=== PATIENT | female | born 1960 | race Caucasian/White ===

== ENCOUNTER 2016-07-20 12:23 | Emergency (ER) | payer OTHER ==
[2016-07-20 13:07] VITALS: BP 159/88
--- NOTE | 2016-07-20 14:08 | ED GENERAL ADULT ---
History of Present Illness General Chief Complaint: Upper Respiratory Sx/Fever Stated Complaint: URI X 2WKS Source: patient, family Exam Limitations: no limitations Vital Signs & Intake/Output Vital Signs & Intake/Output Vital Signs Date Time Temp Pulse Resp B/P Pulse O2 O2 Flow FiO2 Ox Delivery Rate 07/20 1505 98 07/20 1307 97.1 86 18 159/88 98 Room Air Allergies Coded Allergies: No Known Allergies (07/20/16) Reconcile Medications Acetaminophen 500 MG TABLET 4 TAB PO DAILY PRN PAIN (Reported) Citalopram Hydrobromide (Celexa) (Unknown Strength) TABLET (Unknown Dose) PO DAILY MENTAL HEALTH (Reported) Montelukast Sodium (Singulair) 10 MG TABLET 1 TAB PO DAILY SINUSES (Reported) Multivitamin (Multi-Day Vitamins) 1 EACH TABLET 1 TAB PO DAILY SUPPLEMENT ( Reported) Prednisone 10 MG TABLET 1 TAB PO BID bronchitis Sitagliptin Phosphate (Januvia) (Unknown Strength) TABLET (Unknown Dose) PO DAILY DM (Reported) Tamoxifen Citrate 20 MG TABLET 1 TAB PO DAILY BREAST CANCER (Reported) Tramadol HCl 50 MG TABLET 1-2 TAB PO Q6P PRN pain Triage Note: PT STATES SHE IS FROM [place] AND IS [facility]ITING [facility]. PT STATES SHE WAS RECENTLY TREATED AT HOME FOR BRONCHITIS WITH ABX. PT STATES SHE STARTED TO FEEL BETTER BUT NOW LATELY HAS BACK AND NECK PAIN. PT ALSO STATES SHE FEELS VERY TIRED. PT DENIES ANY RECENT FEVERS. Triage Nurses Notes Reviewed? yes Onset: Abrupt Duration: week(s):, constant, continues in ED Timing: recent history No Modifying Factors: none HPI: 55-year-old female comes into emergency room for further evaluation of general pain in her shoulders back and upper chest. Patient reports that she was sick with bronchitis for a few weeks. Patient was coughing a lot. Patient reports that over the past few days she woke up and was experiencing just general pain in her upper body. Denies any shortness of breath. Pain is worse with movement and deep breath. Denies any fever or chills. Denies any persistent cough at this time. Denies any runny nose congestion. Denies any nausea vomiting. Patient reports that nothing is seen the make the symptoms better. (ADRIAN BROWN,ALANNAH) Past History Travel History Traveled to [place] past 21 day No Medical History Any Pertinent Medical History? see below for history Respiratory: bronchitis Endocrine: diabetes Cancer(s): breast cancer Surgical History Surgical History: non-contributory Psychosocial History What is your primary language Frisian Tobacco Use: Quit >30 days ago Family History Hx Contributory? No (ALANNAH WARD) Review of Systems Review of Systems Constitutional: Reports: no symptoms. EENTM: Reports: no symptoms. Respiratory: Reports: see HPI. Cardiovascular: Reports: see HPI. GI: Reports: no symptoms. Genitourinary: Reports: no symptoms. Musculoskeletal: Reports: see HPI. Skin: Reports: no symptoms. Neurological/Psychological: Reports: no symptoms. Hematologic/Endocrine: Reports: no symptoms. Immunologic/Allergic: Reports: no symptoms. All Other Systems: Reviewed and Negative (ALANNAH WARD) Physical Exam Physical Exam General Appearance: well developed/nourished, no apparent distress, alert, awake Head: atraumatic, normal appearance Eyes: Bilateral: normal appearance, PERRL, EOMI. Ears, Nose, Throat: normal pharynx, normal ENT inspection Neck: normal inspection, full range of motion Respiratory: normal breath sounds, no respiratory distress, chest wall tenderness, back pain, rib pain, Cardiovascular: regular rate/rhythm Gastrointestinal: soft Back: normal inspection Extremities: normal inspection, normal range of motion Neurologic/Psych: awake, alert, oriented x 3, normal gait, normal mood/affect Skin: intact, normal color Core Measures ACS in differential dx? No CVA/TIA Diagnosis: No Severe Sepsis Present: No Septic Shock Present: No (ALANNAH WARD) Progress Differential Diagnoses I considered the following diagnoses in my evaluation of the patient: Bronchitis, pneumonia, muscle pain, [place], pulmonary embolism, aortic dissection, Plan of Care: Orders Procedure Date/time Status TROPONIN LEVEL 07/20 1407 Complete D-DIMER 07/20 1407 Complete COMPREHENSIVE METABOLIC PANEL 07/20 1407 Complete CBC WITHOUT DIFFERENTIAL 07/20 140 Complete EKG 07/20 1407 Active Laboratory Tests 07/20/16 1440: Anion Gap 10, Estimated GFR > 60, BUN/Creatinine Ratio 16.0, Glucose 85, Calcium 8.6, Total Bilirubin 0.3, AST 33, ALT 47, Alkaline Phosphatase 68, Troponin I < 0.01, Total Protein 7.2, Albumin 4.2, Globulin 3.0, Albumin/Globulin Ratio 1.4, D-Dimer < 200, CBC w Diff NO MAN DIFF REQ, RBC 4.43, MCV 85.8, MCH 29.4, RDW 12.4, MPV 8.8, Gran % 47.4, Lymphocytes % 40.1, Monocytes % 7.3, Eosinophils % 4.7, Basophils % 0.5, Absolute Granulocytes 2.9, Absolute Lymphocytes 2.5, Absolute Monocytes 0.4, Absolute Eosinophils 0.3, Absolute Basophils 0, PUBS MCHC 34.2 Diagnostic Imaging: Viewed by Me: Radiology Read. Discussed w/RAD: Radiology Read. Radiology Impression: SERVICE DATE: 07/20/16 EXAM TYPE: RAD - XRY-CHEST XRAY, PA AND LATERAL EXAMINATION: XR CHEST CLINICAL INFORMATION: Chest pain. COMPARISON: None TECHNIQUE: 2 views of the chest were obtained. FINDINGS: The lateral aspect of left lower chest is not in the [id number]. The lungs are otherwise well-expanded and clear. The heart size and pulmonary vascularity is normal. No gross bony abnormality seen. IMPRESSION: Slightly limited exam as lateral aspect of left lower chest is not in the [id number]. Otherwise unremarkable chest exam.. DICTATED BY: JADIEL GUERRA,KANDIS DATE/TIME DICTATED:1422 V GROOVE CUTTER:GASTON DATE/TIME TRANSCRIBED:07/20/161422 Initial ED EKG: normal intervals, normal p-waves, normal sinus rhythm, rate (71) , old anterior infarct Prior EKG: unchanged (faxed over from previous dr) Comments: 07/20/2016 6:48:22 PM Chest pain is reproducible. Worse with range of motion. Patient seen by Dr. Melton. EKG is unchanged from prior. EKG was faxed over from facility that she had one done back in April 2016. Chest pain is more consistent with muscular pain/bronchial than it is cardiac. Low suspicion for any type of cardiac event or pulmonary embolism. D-dimer negative. Follow-up with semiautomatic taper operator when he return home. Return if any other concerns. (ADRIAN BROWN,ALANNAH) Departure Departure Disposition: HOME OR SELF CARE Condition: Stable Clinical Impression Primary Impression: Chest wall pain Referrals: UNKNOWN (PCP/Family) Additional Instructions: Follow-up with your primary care doctor back in [place]. Have your platelet count rechecked. Return if any concerns worsening symptoms. Take tramadol and prednisone as prescribed. Please go over all results of today's visit with your primary care doctor. Contact your primary care doctor to let them know you were here in the emergency room. There may be nonspecific findings which may not be related to your visit today here in the emergency room but may require further evaluation and chronic monitoring by your primary care doctor. If you had a laceration today the chance of foreign body always remains. You should follow-up with your primary care doctor for recheck in 3-5 days for a wound check. If you had an x-ray done there is a chance that a fracture could have been missed on initial read and you should follow-up with your primary care doctor for repeat x-rays if symptoms persist. If your blood pressure was elevated here in the emergency room please have rechecked by her primary care doctor within the next 48 hours by your primary care doctor. If you were prescribed a narcotic here in the emergency room or any type of controlled substances you're not allowed to drive while taking this medication or operate any type of heavy machinery. Narcotics can make you feel lightheaded dizziness nausea and can cause constipation. You may need to crop picker a stool softener. Thank you for choosing [facility] emergency room. Please return to the emergency room immediately if you have any other concerns worsening of symptoms. Departure Forms: Customer Survey General Discharge Information Prescriptions: Current Visit Scripts Tramadol HCl 1-2 TAB PO Q6P PRN pain #15 TAB Prednisone 1 TAB PO BID #10 TAB (ALANNAH WARD) PA/PERFORATOR LOADER Co-Sign Statement Statement: ED Attending supervision documentation- [x] I saw and evaluated the patient. I have also reviewed all the pertinent lab results and diagnostic results. I agree with the findings and the plan of care as documented in the PA's/PERFORATOR LOADER's documentation. [] I have reviewed the ED Record and agree with the PA's/PERFORATOR LOADER's documentation. [] Additions or exceptions (if any) to the PAs/PERFORATOR LOADER's note and plan are summarized below: [] (BRAYAN MELTON DO) Critical Care Note Critical Care Note Critical Care Time: non-applicable (ALANNAH WARD)
--- NOTE | 2016-07-20 14:28 | RADIOLOGY REPORT ---
EXAMINATION: XR CHEST CLINICAL INFORMATION: Chest pain. COMPARISON: None TECHNIQUE: 2 views of the chest were obtained. FINDINGS: The lateral aspect of left lower chest is not in the [id number]. The lungs are otherwise well-expanded and clear. The heart size and pulmonary vascularity is normal. No gross bony abnormality seen. IMPRESSION: Slightly limited exam as lateral aspect of left lower chest is not in the [id number]. Otherwise unremarkable chest exam..
[2016-07-20 14:55] LABS: ABSOLUTE BASOPHIL COUNT 0 /CUMM (0.0-0.2); ABSOLUTE EOSINOPHIL COUNT 0.3 /CUMM (0.0-0.7); ABSOLUTE GRANULOCYTE CT 2.9 /CUMM (1.4-6.5); ABSOLUTE LYMPH COUNT 2.5 /CUMM (1.2-3.4); ABSOLUTE MONOCYTE COUNT 0.4 /CUMM (0.10-0.60); BASOPHIL % 0.5 % (0.0-2.0); EOSINOPHIL % 4.7 % (0-5); GRANULOCYTE % 47.4 % (42.2-75.2); MEAN CORPUSCULAR HGB 29.4 PG (27.0-31.0); MEAN CORPUSCULAR HGB CONC 34.2 G/DL (33.0-37.0); MEAN CORPUSCULAR VOLUME 85.8 FL (81.0-99.0); MEAN PLATELET VOLUME 8.8 FL (7.4-10.4); PLATELET COUNT 111 /CUMM (130-400); RBC DISTRIBUTION WIDTH 12.4 % (11.5-14.5); RED BLOOD CELL CT 4.43 /CUMM (4.20-5.40); WHITE BLOOD CELL COUNT 6.2 /CUMM (4.8-10.8)
[2016-07-20] MEDS ORDERED: PREDNISONE10 M2 PO (15:43)
[2016-07-20] MEDS ORDERED: TRAMADOL HCL50 M1 PO (15:43)
[2016-07-20] MEDS ORDERED: JANUVIA25 M1 PO (15:48)
[2016-07-20] MEDS ORDERED: TAMOXIFEN CITRA20 M1 PO (15:49)
[2016-07-20] MEDS ORDERED: CELEXA40 M1 PO (15:49)
[2016-07-20] MEDS ORDERED: MULTI-DAY VITA1 EACH PO (15:50)
[2016-07-20] MEDS ORDERED: SINGULAIR10 M1 PO (15:50)
[2016-07-20] MEDS ORDERED: ACETAMINOPHEN500 M4 PO (15:50)
== END 2016-07-20 17:01 ==
LOC: ERH 12:23
PROVIDERS: Physician Assistant Medical
DX: R07.89 Other chest pain (principal)
CPT/HCPCS: 1263; 93005; 93010